=== PATIENT | male | born 1945 | race Caucasian/White ===

== ENCOUNTER 2024-06-10 20:33 | Inpatient (IN) | payer MEDICARE, MEDICAID ==
[~2024-06-10] VITALS: Ht 172.7 cm; Wt 90.9 kg
[2024-06-10 21:03] LABS: BASOPHILS # (AUTO) 0.1 X10'3 (0-0.2); BASOPHILS % (AUTO) 0.9 % (0-1); EOSINOPHILS # (AUTO) 0.8 X10'3 (0-0.9); EOSINOPHILS % (AUTO) 5.6 % (0-6); HEMATOCRIT 37.8 % (42.0-52.0); HEMOGLOBIN 12.4 g/dl (14.0-17.9); LYMPHOCYTES # (AUTO) 1.5 X10'3 (1.1-4.8); LYMPHOCYTES % (AUTO) 11.4 % (21-51); MEAN CORPUSCULAR HEMOGLOBIN 28.7 PG (27.0-31.0); MEAN CORPUSCULAR HGB CONC 32.8 g/dL (33.0-36.5); MEAN CORPUSCULAR VOLUME 87.5 FL (78-98); MEAN PLATELET VOLUME 7.2 FL (7.4-10.4); MONOCYTES # (AUTO) 1.2 X10'3 (0-0.9); MONOCYTES % (AUTO) 9.1 % (2-12); NEUTROPHILS # (AUTO) 9.8 X10'3 (1.8-7.7); PLATELET COUNT 350 X10'3 (140-440); RED BLOOD COUNT 4.32 X10'6 (4.70-6.10); RED CELL DISTRIBUTION WIDTH 15.5 % (11.5-14.5); WHITE BLOOD COUNT 13.5 X10'3 (4.5-11.0)
[2024-06-10] MEDS: HYDROmorphone inj. 0.5 MG/0.5 ML DISP.SYRIN IV ONE (21:53)
[2024-06-10 22:15] LABS: ALANINE AMINOTRANSFERASE 32 U/L (12-78); ALBUMIN 3.4 G/DL (3.4-5.0); ALKALINE PHOSPHATASE 154 IU/L (46-116); ANION GAP 6 (8-16); ASPARTATE AMINO TRANSFERASE 19 U/L (10-37); BILIRUBIN,TOTAL 0.3 MG/DL (0.1-1.0); BLOOD UREA NITROGEN 25 MG/DL (7-18); BUN/CREATININE RATIO 22.7 (10.0-20.0); CALCIUM 9.2 MG/DL (8.5-10.1); CHLORIDE 88 MMOL/L (99-107); GLUCOSE 95 MG/DL (70-104); POTASSIUM 4.9 MMOL/L (3.5-5.1); SODIUM 121 MMOL/L (135-145); TOTAL CARBON DIOXIDE 27.1 MMOL/L (24-32); TOTAL PROTEIN 6.9 G/DL (6.4-8.2); eCRCL 54 ML/MIN; eGFR 65 ML/MIN
[2024-06-10] MEDS ORDERED: magnesium sulf-water 2g/50mL 50 ML IV PRN (22:20)
[2024-06-10] MEDS ORDERED: potassium Cl 20 mEq SR tablet PO PRN ×2 (22:20)
[2024-06-10] MEDS ORDERED: magnesium sulf-water 4G/100mL 100 ML IV PRN (22:20)
[2024-06-10] MEDS ORDERED: acetaminophen 325mg tablet PO PRN ×2 (22:20)
[2024-06-10] MEDS ORDERED: magnesium Cl slow-release 64mg tablet PO PRN (22:20)
[2024-06-10] MEDS ORDERED: ondansetron/PF 4mg/2ml inj IV PRN (22:20)
[2024-06-10] MEDS ORDERED: potassium Cl 40MEQ/1/2NS 520ml 520 ML IV PRN (22:20)
[2024-06-10] MEDS: LidoCAINE 2% Topical Jelly 11mL syringe (UROJET) TOP ONE (23:25)
[2024-06-10 23:31] LABS: BILIRUBIN,URINE NEGATIVE (Neg); CLARITY,URINE SLIGHTLY CLOUDY (Clear); COLOR,URINE YELLOW (Yellow); GLUCOSE, URINE NEGATIVE (Neg); KETONES,URINE NEGATIVE (Neg); LEUKOCYTE ESTERASE ,URINE NEGATIVE (Neg); NITRITES, URINE POSITIVE (Neg); OCCULT BLOOD,URINE NEGATIVE (Neg); PROTEIN,URINE NEGATIVE (Neg); UROBILINOGEN,URINE 0.2 E.U/dL (0.2-1.0)
[2024-06-10 23:36] LABS: UA COLLECTION TYPE FOLEY CATH
[2024-06-10 23:37] LABS: BACTERIA,URINE 4+ /HPF (Neg); WBC CLUMPS,URINE FEW /HPF (NEGATIVE)
[2024-06-10 23:38] LABS: SQUAMOUS EPITHELIAL CELL,UR NONE SEEN /LPF (FEW); WBC,URINE 20-30 /HPF (0-4)
[2024-06-10 23:39] LABS: RBC,URINE 0-2 /HPF (0-2)
[2024-06-11] VITALS (11 sets, daily range): BP systolic 147–163; BP diastolic 57–105; PULSE 74–104; RESP 14–20; TEMP 97.6–98.1; O2SAT 93–98
[2024-06-11] MEDS: ketamine 10mg/ml 20ml inj vial IV ONE (00:12)
[2024-06-11] MEDS ORDERED: ipratropium/albuterol 3ml nebule NEB PRN (00:50)
[2024-06-11] MEDS: CefTRIAXone/D5W-Rocephin 1gm 50 ML IV SCH (02:11)
[2024-06-11] MEDS: normal saline 1000ml 1,000 ML IV SCH (02:12)
[2024-06-11] MEDS ORDERED: HYDR-3964 PO (02:22)
[2024-06-11] MEDS ORDERED: DOCU-148 PO (02:22)
[2024-06-11] MEDS ORDERED: SENN-360 PO (02:22)
[2024-06-11] MEDS ORDERED: DEMECLOCYCLINE PO (02:22)
[2024-06-11] MEDS ORDERED: ACID1TAB2 PO (02:22)
[2024-06-11] MEDS ORDERED: LISI10TA27 PO (02:22)
[2024-06-11] MEDS ORDERED: CHOL10006 PO (02:22)
[2024-06-11] MEDS ORDERED: OMEP20TA23 PO (02:22)
[2024-06-11] MEDS ORDERED: OMEP40CA21 PO (02:22)
[2024-06-11] MEDS ORDERED: SIMV-42 PO (02:22)
[2024-06-11] MEDS ORDERED: FLUT1AER INH (02:22)
[2024-06-11] MEDS ORDERED: FLO0.4C PO (02:22)
[2024-06-11] MEDS ORDERED: ALB0.5UD NEB (02:22)
[2024-06-11] MEDS ORDERED: AMLO5TAB16 PO (02:22)
[2024-06-11] MEDS ORDERED: LORA-269 PO (02:22)
[2024-06-11] MEDS ORDERED: LEVO25TA7 PO (02:22)
[2024-06-11] MEDS ORDERED: MULT-1085 PO (02:22)
[2024-06-11] MEDS: HYDROmorphone 1 mg/ml syringe IM ONE (05:28)
[2024-06-11] MEDS: HYDROmorphone 1 mg/ml syringe IV ONE (05:53)
[2024-06-11] MEDS: levoTHYROXINE 25mcg tablet PO SCH (07:02)
[2024-06-11 07:41] LABS: BASOPHILS % (AUTO) 0.2 % (0-1); EOSINOPHILS # (AUTO) 0.5 X10'3 (0-0.9); EOSINOPHILS % (AUTO) 2.8 % (0-6); HEMATOCRIT 34.7 % (42.0-52.0); HEMOGLOBIN 11.3 g/dl (14.0-17.9); LYMPHOCYTES # (AUTO) 0.9 X10'3 (1.1-4.8); LYMPHOCYTES % (AUTO) 5.1 % (21-51); MEAN CORPUSCULAR HEMOGLOBIN 28.4 PG (27.0-31.0); MEAN CORPUSCULAR HGB CONC 32.7 g/dL (33.0-36.5); MEAN CORPUSCULAR VOLUME 86.9 FL (78-98); MEAN PLATELET VOLUME 7.2 FL (7.4-10.4); MONOCYTES # (AUTO) 1.1 X10'3 (0-0.9); MONOCYTES % (AUTO) 6.2 % (2-12); NEUTROPHILS # (AUTO) 15.3 X10'3 (1.8-7.7); NEUTROPHILS % (AUTO) 85.7 % (42-75); PLATELET COUNT 275 X10'3 (140-440); RED BLOOD COUNT 3.99 X10'6 (4.70-6.10); RED CELL DISTRIBUTION WIDTH 15.5 % (11.5-14.5); WHITE BLOOD COUNT 17.8 X10'3 (4.5-11.0)
[2024-06-11] MEDS ORDERED: heparin, porcine 5000 units/ml vial SQ SCH (08:00)
[2024-06-11] MEDS: K and/or MAG REPLACEMENT MC SCH (08:00)
[2024-06-11 08:12] LABS: APTT 27 SECONDS (22-32); PROTHROMBIN TIME 10.3 SECONDS (9.0-12.0)
[2024-06-11] MEDS: heparin, porcine 5000 units/ml vial SQ SCH (08:57)
[2024-06-11] MEDS: ipratropium/albuterol 3ml nebule NEB ONE (08:59)
[2024-06-11] MEDS: morphine 2 MG/ML inj. syringe IV PRN (09:01)
[2024-06-11 09:56] LABS: ALBUMIN 3.4 G/DL (3.4-5.0); BLOOD UREA NITROGEN 22 MG/DL (7-18); BUN/CREATININE RATIO 27.5 (10.0-20.0); CALCIUM 8.8 MG/DL (8.5-10.1); GLUCOSE 97 MG/DL (70-104); TOTAL CARBON DIOXIDE 26.2 MMOL/L (24-32); eCRCL 74 ML/MIN; eGFR > 90 ML/MIN
[2024-06-11 10:25] LABS: POTASSIUM 4.5 MMOL/L (3.5-5.1); SODIUM 121 MMOL/L (135-145)
[2024-06-11 10:26] LABS: ANION GAP 7 (8-16); CHLORIDE 88 MMOL/L (99-107)
[2024-06-11] MEDS: ipratropium/albuterol 3ml nebule NEB SCH (19:18)
[2024-06-11] MEDS: sennosides 8.6mg tablet PO SCH (19:30)
[2024-06-11] MEDS: tamsulosin 0.4mg capsule PO SCH (19:30)
[2024-06-11] MEDS: pantoprazole 40mg Tablet.DR PO SCH (19:30)
[2024-06-11] MEDS: simvastatin 20mg tablet PO SCH (19:30)
[2024-06-11 20:48] LABS: CHOLESTEROL 165 MG/DL (0-200); HDL CHOLESTEROL 83 MG/DL (35-60); LDL CHOLESTEROL 59 MG/DL (50-100); PRO BRAIN NATRIURETIC PEPTIDE 101 PG/ML (0-450); SODIUM 122 MMOL/L (135-145); THYROID STIMULATING HORMONE 3.15 ulU/ml (0.34-4.50); TRIGLYCERIDES 87 MG/DL (20-135)
[2024-06-12] VITALS (14 sets, daily range): BP systolic 111–158; BP diastolic 60–65; PULSE 84–111; RESP 12–22; TEMP 97.4–98.4; O2SAT 92–99
[2024-06-12 07:23] LABS: APTT 28 SECONDS (22-32); PROTHROMBIN TIME 10.7 SECONDS (9.0-12.0)
[2024-06-12 07:25] LABS: BASOPHILS # (AUTO) 0.1 X10'3 (0-0.2); BASOPHILS % (AUTO) 0.5 % (0-1); EOSINOPHILS # (AUTO) 0.8 X10'3 (0-0.9); EOSINOPHILS % (AUTO) 5.4 % (0-6); HEMATOCRIT 36.3 % (42.0-52.0); HEMOGLOBIN 12.2 g/dl (14.0-17.9); LYMPHOCYTES # (AUTO) 0.7 X10'3 (1.1-4.8); LYMPHOCYTES % (AUTO) 4.7 % (21-51); MEAN CORPUSCULAR HEMOGLOBIN 29.5 PG (27.0-31.0); MEAN CORPUSCULAR HGB CONC 33.6 g/dL (33.0-36.5); MEAN CORPUSCULAR VOLUME 87.8 FL (78-98); MEAN PLATELET VOLUME 7.3 FL (7.4-10.4); MONOCYTES # (AUTO) 0.7 X10'3 (0-0.9); MONOCYTES % (AUTO) 4.6 % (2-12); NEUTROPHILS % (AUTO) 84.8 % (42-75); PLATELET COUNT 293 X10'3 (140-440); RED BLOOD COUNT 4.14 X10'6 (4.70-6.10); RED CELL DISTRIBUTION WIDTH 15.7 % (11.5-14.5); WHITE BLOOD COUNT 14.2 X10'3 (4.5-11.0)
[2024-06-12 07:25] LABS: ALBUMIN 3.2 G/DL (3.4-5.0); ANION GAP 6 (8-16); BLOOD UREA NITROGEN 11 MG/DL (7-18); BUN/CREATININE RATIO 13.4 (10.0-20.0); CALCIUM 8.5 MG/DL (8.5-10.1); CHLORIDE 90 MMOL/L (99-107); CREATININE 0.82 MG/DL (0.60-1.10); GLUCOSE 81 MG/DL (70-104); POTASSIUM 3.9 MMOL/L (3.5-5.1); SODIUM 122 MMOL/L (135-145); TOTAL CARBON DIOXIDE 25.8 MMOL/L (24-32); eCRCL 72 ML/MIN; eGFR > 90 ML/MIN
[2024-06-12] MEDS ORDERED: DEMECLOCYCLINE 300 MG PO SCH (08:00)
[2024-06-12] MEDS ORDERED: ACIDOPHILUS PO SCH (08:00)
[2024-06-12] MEDS ORDERED: PECTIN CITRUS PO SCH (08:00)
[2024-06-12] MEDS: tamsulosin 0.4mg capsule PO SCH (08:52)
[2024-06-12] MEDS: amLODIPine 5mg tablet PO SCH (08:52)
[2024-06-12] MEDS: lisinopril 10 MG tablet PO SCH (08:53)
[2024-06-12] MEDS: levoTHYROXINE 25mcg tablet PO SCH (09:01)
[2024-06-12 13:33] LABS: CREATINE KINASE 320 U/L (39-308)
[2024-06-12] MEDS: UREA 15GM/PACKET 15 GM POWD.PACK PO SCH (13:56)
[2024-06-12] MEDS: demeclocycline 150mg tablet PO SCH (13:57)
[2024-06-12 22:41] LABS: OSMOLALITY 263 MOSM/K (280-300)
[2024-06-12 22:46] LABS: SODIUM 121 MMOL/L (135-145)
[2024-06-13] VITALS (30 sets, daily range): BP systolic 89–167; BP diastolic 50–81; PULSE 77–103; RESP 14–35; TEMP 95.3–98.4; O2SAT 86–99
[2024-06-13 07:38] LABS: BASOPHILS # (AUTO) 0.1 X10'3 (0-0.2); BASOPHILS % (AUTO) 0.5 % (0-1); HEMATOCRIT 32.3 % (42.0-52.0); LYMPHOCYTES # (AUTO) 1.1 X10'3 (1.1-4.8); LYMPHOCYTES % (AUTO) 8.6 % (21-51); MEAN CORPUSCULAR HEMOGLOBIN 29.5 PG (27.0-31.0); MEAN CORPUSCULAR VOLUME 86.8 FL (78-98); MEAN PLATELET VOLUME 7.4 FL (7.4-10.4); MONOCYTES # (AUTO) 1.2 X10'3 (0-0.9); MONOCYTES % (AUTO) 9.7 % (2-12); NEUTROPHILS # (AUTO) 9.4 X10'3 (1.8-7.7); NEUTROPHILS % (AUTO) 73.2 % (42-75); PLATELET COUNT 247 X10'3 (140-440); RED BLOOD COUNT 3.73 X10'6 (4.70-6.10); RED CELL DISTRIBUTION WIDTH 15.6 % (11.5-14.5); WHITE BLOOD COUNT 12.8 X10'3 (4.5-11.0)
[2024-06-13 07:41] LABS: ALBUMIN 2.8 G/DL (3.4-5.0); ANION GAP 6 (8-16); APTT 30 SECONDS (22-32); BLOOD UREA NITROGEN 18 MG/DL (7-18); BUN/CREATININE RATIO 23.4 (10.0-20.0); CALCIUM 8.6 MG/DL (8.5-10.1); CHLORIDE 88 MMOL/L (99-107); CREATININE 0.77 MG/DL (0.60-1.10); GLUCOSE 90 MG/DL (70-104); PROTHROMBIN TIME 10.6 SECONDS (9.0-12.0); TOTAL CARBON DIOXIDE 24.9 MMOL/L (24-32); eCRCL 76 ML/MIN; eGFR > 90 ML/MIN
[2024-06-13 07:44] LABS: SODIUM 119 MMOL/L (135-145)
[2024-06-13] MEDS: HYDROcodone/acetaminophen 10/325mg tab PO PRN (08:05)
[2024-06-13 08:18] LABS: ANISOCYTOSIS 1+; PLATELET ESTIMATE NORMAL; TOTAL CELLS COUNTED 100
[2024-06-13] MEDS: normal saline 1000ml 1,000 ML IV SCH (09:46)
[2024-06-13] MEDS: methylPREDNISolone sod succ 125mg/2ml vial IV ONE (09:46)
[2024-06-13] MEDS: normal saline 500ml IV soln 500 ML IV ONE (09:52)
[2024-06-13] MEDS: ipratropium/albuterol 3ml nebule NEB SCH (13:51)
[2024-06-13] MEDS ORDERED: BUPIVAcaine 2.5mg/ml inj 50ml vial (contains preservative) ONE ×4 (14:14→17:01)
[2024-06-13] MEDS ORDERED: vancomycin 1,000mg inj ONE ×2 (14:14→14:45)
[2024-06-13] MEDS ORDERED: isoflurane 100ml inhalation liquid IH ONE (15:32)
[2024-06-13] MEDS ORDERED: midazolam 1 mg/ML 2ml injection ONE ×2 (15:36→15:43)
[2024-06-13] MEDS ORDERED: fentaNYL /PF 50mcg/ml 5ml ampule ONE (15:36)
[2024-06-13] MEDS ORDERED: rocuronium 10mg/ml inj IV ONE (15:58)
[2024-06-13] MEDS ORDERED: ceFAZolin 1000mg inj ONE ×2 (16:12)
[2024-06-13] MEDS ORDERED: propofol inj 20 ML IV ONE (16:13)
[2024-06-13] MEDS ORDERED: glycopyrrolate 0.2mg/ml inj ONE (17:15)
[2024-06-13] MEDS ORDERED: neostigmine methylsulfate 1 MG/ML 10ml vial ONE (17:15)
[2024-06-14] VITALS (13 sets, daily range): BP systolic 105–126; BP diastolic 54–67; PULSE 88–112; RESP 12–20; TEMP 96.8–98.6; O2SAT 94–98
[2024-06-14] MEDS ORDERED: metoprolol tartrate 1mg/ml inj IV SCH (03:45)
[2024-06-14 06:42] LABS: BASOPHILS % (AUTO) 0.1 % (0-1); EOSINOPHILS % (AUTO) 0.1 % (0-6); HEMATOCRIT 28.2 % (42.0-52.0); HEMOGLOBIN 9.6 g/dl (14.0-17.9); LYMPHOCYTES # (AUTO) 0.5 X10'3 (1.1-4.8); LYMPHOCYTES % (AUTO) 4.6 % (21-51); MEAN CORPUSCULAR HEMOGLOBIN 29.6 PG (27.0-31.0); MEAN CORPUSCULAR HGB CONC 34.1 g/dL (33.0-36.5); MEAN CORPUSCULAR VOLUME 86.9 FL (78-98); MEAN PLATELET VOLUME 7.3 FL (7.4-10.4); MONOCYTES # (AUTO) 0.7 X10'3 (0-0.9); MONOCYTES % (AUTO) 5.7 % (2-12); NEUTROPHILS # (AUTO) 10.3 X10'3 (1.8-7.7); NEUTROPHILS % (AUTO) 89.5 % (42-75); PLATELET COUNT 237 X10'3 (140-440); RED BLOOD COUNT 3.25 X10'6 (4.70-6.10); RED CELL DISTRIBUTION WIDTH 15.6 % (11.5-14.5); WHITE BLOOD COUNT 11.5 X10'3 (4.5-11.0)
[2024-06-14 06:48] LABS: PROTHROMBIN TIME 10.7 SECONDS (9.0-12.0)
[2024-06-14 06:50] LABS: ALBUMIN 2.3 G/DL (3.4-5.0); ANION GAP 8 (8-16); BLOOD UREA NITROGEN 15 MG/DL (7-18); BUN/CREATININE RATIO 21.7 (10.0-20.0); CALCIUM 8.4 MG/DL (8.5-10.1); CHLORIDE 97 MMOL/L (99-107); CREATININE 0.69 MG/DL (0.60-1.10); GLUCOSE 115 MG/DL (70-104); POTASSIUM 4.1 MMOL/L (3.5-5.1); SODIUM 127 MMOL/L (135-145); TOTAL CARBON DIOXIDE 22.4 MMOL/L (24-32); eCRCL 85 ML/MIN; eGFR > 90 ML/MIN
[2024-06-14] MEDS: methylPREDNISolone sod succ 125mg/2ml vial IV SCH (08:42)
[2024-06-14] MEDS: lactose-reduced food (Ensure Enlive) - 237ml bottle PO SCH (18:00)
[2024-06-15 06:51] LABS: BASOPHILS % (AUTO) 0.1 % (0-1); EOSINOPHILS % (AUTO) 0.1 % (0-6); HEMATOCRIT 28.2 % (42.0-52.0); HEMOGLOBIN 9.3 g/dl (14.0-17.9); LYMPHOCYTES # (AUTO) 0.8 X10'3 (1.1-4.8); LYMPHOCYTES % (AUTO) 6.1 % (21-51); MEAN CORPUSCULAR HEMOGLOBIN 28.6 PG (27.0-31.0); MEAN CORPUSCULAR VOLUME 86.7 FL (78-98); MEAN PLATELET VOLUME 7.3 FL (7.4-10.4); MONOCYTES # (AUTO) 0.8 X10'3 (0-0.9); MONOCYTES % (AUTO) 6.2 % (2-12); NEUTROPHILS # (AUTO) 11.1 X10'3 (1.8-7.7); NEUTROPHILS % (AUTO) 87.5 % (42-75); PLATELET COUNT 250 X10'3 (140-440); RED BLOOD COUNT 3.25 X10'6 (4.70-6.10); RED CELL DISTRIBUTION WIDTH 15.7 % (11.5-14.5); WHITE BLOOD COUNT 12.7 X10'3 (4.5-11.0)
[2024-06-15 06:55] LABS: PROTHROMBIN TIME 10.3 SECONDS (9.0-12.0)
[2024-06-15 06:59] LABS: ALBUMIN 2.6 G/DL (3.4-5.0); ANION GAP 8 (8-16); BLOOD UREA NITROGEN 23 MG/DL (7-18); BUN/CREATININE RATIO 31.1 (10.0-20.0); CALCIUM 8.8 MG/DL (8.5-10.1); CHLORIDE 97 MMOL/L (99-107); CREATININE 0.74 MG/DL (0.60-1.10); GLUCOSE 110 MG/DL (70-104); POTASSIUM 3.9 MMOL/L (3.5-5.1); SODIUM 128 MMOL/L (135-145); eCRCL 80 ML/MIN; eGFR > 90 ML/MIN
[2024-06-15 08:47] VITALS: RESP 14; O2SAT 94
[2024-06-15 13:50] VITALS: BP 143/68; PULSE 90; RESP 16; TEMP 97.7; O2SAT 98
[2024-06-15 14:54] VITALS: RESP 14
== END 2024-06-15 17:06 | DRG 521 ==
LOC: ER 20:33 → ED HOLD 22:26 → EDBEDREQ 06-11 12:31 → ORTHO 4S 06-11 13:03
PROVIDERS: ADMIT Internal Medicine Critical Care Medicine; ATTEND Internal Medicine
PROC: 0PSHXZZ Reposition Right Radius, External Approach (ICD-10-PCS; 2024-06-10)
PROC: 0SRR0J9 Replacement of Right Hip Joint, Femoral Surface with Synthetic Substitute, Cemented, Open Approach (ICD-10-PCS; principal; 2024-06-13 15:32)
DX: S72.091A Other fracture of head and neck of right femur, initial encounter for closed fracture (principal); N17.0 Acute kidney failure with tubular necrosis; S52.691A Other fracture of lower end of right ulna, initial encounter for closed fracture; S52.531A Colles' fracture of right radius, initial encounter for closed fracture; N39.0 Urinary tract infection, site not specified; J44.1 Chronic obstructive pulmonary disease with (acute) exacerbation; E22.2 Syndrome of inappropriate secretion of antidiuretic hormone; Z66 Do not resuscitate; W18.39XA Other fall on same level, initial encounter; I12.9 Hypertensive chronic kidney disease with stage 1 through stage 4 chronic kidney disease, or unspecified chronic kidney disease; E03.9 Hypothyroidism, unspecified; F03.90 Unspecified dementia, unspecified severity, without behavioral disturbance, psychotic disturbance, mood disturbance, and anxiety; N18.30 Chronic kidney disease, stage 3 unspecified; Y93.89 Activity, other specified; Y92.89 Other specified places as the place of occurrence of the external cause; Y99.8 Other external cause status
CPT/HCPCS: 36415; 70450; 71045; 72125; 73100; 73110; 73502; 73521; 73610; 80048; 80053; 80061; 81001; 82550; 82570; 82948; 83605; 83880; 83930; 83935; 84145; 84295; 84300; 84443; 85007; 85025; 85610; 85730; 87077; 87081; 87088; 87186; 87207; 93005; 94640; 94760; 96374; 97110; 97116; 97162; 97530; 99285; A4314; A4565; A4615; A4618; A4620; A5200; A6209; A6223; A6253; A6449; A6454; A6590; A7000; C1713; C1776; G0378; J0690; J0696; J1100; J1171; J1644; J2250; J2270; J2405; J2704; J2710; J2919; J3010; J3370; J3490; J7030; J7040; J7120